=== PATIENT | male | born 1940 | race Caucasian/White ===

== ENCOUNTER 2018-09-19 08:23 | Outpatient (CLI) | payer MEDICARE, BC ==
[2018-09-19] MEDS ORDERED: Gadobenate Dimeglumine 529 MG/1 ML (20ML VIAL) ONE (11:15)
--- NOTE | 2018-09-19 12:41 | MRI ---
MRI OF THE PELVIS WITH AND WITHOUT IV CONTRAST: INDICATION: History of prostate cancer with biopsy 1.5 months ago. Biopsy results were not provided. TECHNIQUE: Multiplanar, multisequence MR images were obtained of the pelvis with and without contrast utilizing a prostate cancer specific protocol. 18 cc of MultiHance was utilized for the examination. No mervin risons are available. The examination was evaluated utilizing a separate 3D DynaCAD work station for multiparametric evaluation. FINDINGS: Motion artifact and stool and gas within the rectum limits image detail. The prostate measures 4.6 x 4.1 x 4.5 cm giving an estimated total prostatic volume of 38 cc. There are multiple areas of heterogeneous nodular formation seen within the central gland likely rela damion to BPH. No extracapsular spread of disease is grossly evident. No pathologically enlarged lymph nodes are present. A small amount of free fluid is present within the pelvis, which may be related to the patient's prior procedure. There is very subtle wall thickening involving the left lateral and posterior wall of the rectum, angelia e of which may be related to the fecal material and peristalsis; however, a focal mass cannot be enti rely excluded. There is a fat-containing inguinal hernias. There is a small intermediate to low T1 hypointensity se en within the left ilium measuring 7 mm adjacent to the left SI joint. A similar signal intensity le edwar is seen within the right ilium measuring 3 mm. This may reflect red marrow. There is some laye red debris seen within the posterior aspect of the bladder. IMPRESSION: 1. PIRADS category 2 - low (clinically significant cancer is unlikely to be present). There is no d efinite evidence of extraprostatic spread of disease. No definite pathologically enlarged lymph node s are evident. 2. Asymmetric wall thickening involving the left lower and posterior aspect of the wall of the rectu m may be artifactual in nature related to peristalsis; however, a focal rectal lesion cannot be entir madeleine excluded. Would recommend consideration for appropriate colon and rectal screening if not alread y performed. 3. Small amount of fluid in the pelvis may be related to patient's prior biopsy. 4. Small amount of layered debris within the posterior bladder may reflect a small amount of hemorrh age or possibly a cystitis. 5. Bilateral fat-containing hernias. 6. Intermediate and slightly low signal intensity focal lesions within both olivier may reflect areas o f red marrow rests. Metastatic disease is felt to be less likely. Would recommend recommendation co nsideration for correlation with a whole body bone scan for further characterization. CODE T POS: KADEN
== END 2018-09-19 08:24 | disposition home or self-care (01) ==
LOC: TBSIIMAG 08:23
PROVIDERS: ATTEND Radiology Radiation Oncology
DX: C61 Malignant neoplasm of prostate (principal); K62.89 Other specified diseases of anus and rectum; N32.9 Bladder disorder, unspecified; K40.20 Bilateral inguinal hernia, without obstruction or gangrene, not specified as recurrent
CPT/HCPCS: 72197; 82565; A9579

== ENCOUNTER 2022-05-12 09:46 | Inpatient (IN) | payer MEDICARE, BC ==
[2022-05-12] MEDS ORDERED: Ketorolac Tromethamine 30 MG/ML VIAL ONE (10:41)
[2022-05-12] MEDS ORDERED: Morphine 4 MG/ML VIAL ONE ×2 (10:42→12:36)
[2022-05-12 11:18] LABS: #Lymphocytes 1.1 thou/uL (1.20-3.40); #Monocytes 1.4 thou/uL (0.11-0.59); #Neutrophils 8.1 thou/uL (1.40-6.50); %Basophils 0.1 % (0.0-1.0); %Eosinophils 0.4 % (0.0-10.0); %Lymphocytes 10.5 % (21.0-51.0); %Monocytes 12.8 % (0.0-10.0); %Neutrophils 76.3 % (42.0-75.0); Hemoglobin 14.7 g/dL (14.0-18.0); Mean Corpuscular HGB CONC 33.8 g/dL (32.0-36.0); Mean Corpuscular Hemoglobin 32.5 pg (27.0-31.0); Mean Corpuscular Volume 96.1 fL (78.0-98.0); Mean Platelet Volume 7.5 fL (7.4-10.4); Platelet Count 132 thou/uL (130-400); RBC Distribution Width 12.7 % (11.5-14.5); Red Blood Cell (RBC) Count 4.52 mill/uL (4.70-6.10); White Blood Cell (WBC) Count 10.6 thou/uL (4.8-10.8)
[2022-05-12 11:41] LABS: ALT (SGPT) 35 U/L (8-55); AST (SGOT) 28 U/L (5-34); Albumin 4.1 g/dL (3.4-4.8); Alkaline Phosphatase 103 U/L (40-110); Anion Gap 15 mmol/L (10-20); BUN (Urea Nitrogen) 20 mg/dL (8.4-25.7); Bilirubin, Total 1.8 mg/dL (0.2-1.2); Calc. Creatinine Clearance 0 mL/min (70-130); Calcium 9.4 mg/dL (7.8-10.44); Carbon Dioxide 24 mmol/L (23-31); Chloride 104 mmol/L (98-107); Estimated GFR 33; Globulin 2.8 g/dL (2.4-3.5); Glucose 119 mg/dL (83-110); Potassium 4.9 mmol/L (3.5-5.1); Protein, Total 6.9 g/dL (5.8-8.1); Sodium 138 mmol/L (136-145)
[2022-05-12] MEDS ORDERED: Dextrose 50% Abboject 50 ML SYRINGE SLOW IVP PRN (12:44)
[2022-05-12] MEDS ORDERED: Dextrose 5% in Water 1,000 ML IV PRN (12:44)
[2022-05-12] MEDS ORDERED: hydrALAZINE 20 MG/ML VIAL SLOW IVP PRN (12:44)
[2022-05-12] MEDS ORDERED: traMADol HCl 50 MG TAB PO PRN (12:48)
[2022-05-12] MEDS ORDERED: Sodium Chloride 0.9% 1,000 ML IV SCH (13:00)
[2022-05-12] MEDS ORDERED: CEFAZOLIN 2 GM in Sodium Chloride 0.9% 100 ML IVPB SCH (14:00)
[2022-05-12 15:20] VITALS: BMI 29.2
[2022-05-12] MEDS: traMADol HCl 50 MG TAB PO SCH ×2 (15:42→21:05)
[2022-05-12] MEDS: Gabapentin 100 MG CAP PO SCH ×2 (15:43→21:05)
[2022-05-12 15:45] LABS: SARS-CoV-2 NAA Rapid Test Not Detected (NotDetected)
[2022-05-12] MEDS: Acetaminophen 500 MG TAB PO SCH ×2 (17:52→23:37)
[2022-05-12] MEDS: Dronedarone HCl 400 MG TAB PO SCH ×2 (17:53→20:20)
[2022-05-12] MEDS: Calcium Carbonate 500 MG ChewTAB PO PRN (17:53)
[2022-05-12] MEDS: Morphine 4 MG/ML VIAL SLOW IVP PRN (17:55)
[2022-05-12] MEDS: Ondansetron PF 4 MG/2 ML Vial IVP PRN (19:45)
[2022-05-12] MEDS: Famotidine 20 MG TAB PO SCH (19:45)
[2022-05-12 20:37] LABS: Bilirubin Negative (Negative); Blood, Urine Negative (Negative); Clarity Clear (Clear); Glucose, Urine (Dipstick) Normal (Negative); Ketone, Urine Negative (Negative); Leukocyte Negative Leu/uL (Negative); Nitrite Negative (Negative); Protein, Urine (Dipstick) 10 mg/dL (Neg-Trace); Specific Gravity, Urine 1.026 (1.002-1.036); Urobilinogen Normal mg/dL (Less than 2); pH, Urine 6.5 (5.0-9.0)
[2022-05-12] MEDS: Senokot S 8.6-50 MG TAB PO SCH (21:05)
[2022-05-13] MEDS: traMADol HCl 50 MG TAB PO SCH (02:42)
[2022-05-13] MEDS: Acetaminophen 500 MG TAB PO SCH (05:46)
[2022-05-13 06:20] LABS: INR-International Normal Ratio 1.2; Prothrombin Time 15.7 sec (12.0-14.7)
[2022-05-13 06:41] LABS: Anion Gap 14 mmol/L (10-20); BUN (Urea Nitrogen) 24 mg/dL (8.4-25.7); Calc. Creatinine Clearance 41 mL/min (70-130); Calcium 8.7 mg/dL (7.8-10.44); Carbon Dioxide 24 mmol/L (23-31); Chloride 106 mmol/L (98-107); Estimated GFR 36; Glucose 85 mg/dL (83-110); Magnesium 1.9 mg/dL (1.6-2.6); Phosphorus 4.3 mg/dL (2.3-4.7); Potassium 4.9 mmol/L (3.5-5.1); Sodium 139 mmol/L (136-145)
[2022-05-13 06:48] LABS: Eosinophils 3 % (0-10); Hemoglobin 12.7 g/dL (14.0-18.0); Hypochromia SLIGHT = 6-15 cells (100X) (0-5/hpf); Lymphocytes 13 % (21-51); MDiff Complete? YES; Mean Corpuscular HGB CONC 32.9 g/dL (32.0-36.0); Mean Corpuscular Volume 97.2 fL (78.0-98.0); Mean Platelet Volume 7.8 fL (7.4-10.4); Monocytes 12 % (0-10); Neutrophil 71 % (42-75); Platelet Count 118 thou/uL (130-400); Platelet Morphology Comment Appears Decreased; RBC Distribution Width 12.6 % (11.5-14.5); Reactive Lymphocytes 1 % (0-10); Red Blood Cell (RBC) Count 3.98 mill/uL (4.70-6.10); White Blood Cell (WBC) Count 6.4 thou/uL (4.8-10.8)
[2022-05-13] MEDS ORDERED: fentaNYL Citrate/PF 100 MCG/2 ML SYRINGE ONE (07:03)
[2022-05-13] MEDS ORDERED: Sodium Chloride 0.9% 100 ML ONE (07:53)
[2022-05-13] MEDS ORDERED: CEFAZOLIN 2 GM VIAL ONE (07:53)
[2022-05-13] MEDS ORDERED: Dexamethasone 20 MG/5 ML VIAL ONE (08:16)
[2022-05-13] MEDS ORDERED: ePHEDrine 50 MG/ML VIAL ONE (08:16)
[2022-05-13] MEDS ORDERED: Rocuronium Bromide 10 MG/ML (10ML VIAL) ONE (08:16)
[2022-05-13] MEDS ORDERED: PROPOFOL 200 MG/20 ML VIAL ONE (08:16)
[2022-05-13] MEDS ORDERED: Ondansetron PF 4 MG/2 ML Vial ONE (08:16)
[2022-05-13] MEDS ORDERED: Lidocaine 1% MPF 2 ML VIAL ONE (08:16)
[2022-05-13] MEDS ORDERED: Phenylephrine 10 MG/ML VIAL ONE (08:16)
[2022-05-13] MEDS ORDERED: SUGAMMADEX SODIUM 200 MG/2 ML VIAL ONE (09:08)
[2022-05-13] MEDS ORDERED: Fentanyl 100 MCG/2 ML VIAL ONE (09:50)
[2022-05-13] MEDS: Morphine 4 MG/ML VIAL SLOW IVP PRN (11:13)
[2022-05-13] MEDS: Sodium Chloride 0.9% 1,000 ML IV SCH ×2 (11:13→20:53)
[2022-05-13] MEDS: Gabapentin 100 MG CAP PO SCH ×3 (11:17→21:19)
[2022-05-13] MEDS: Tamsulosin HCl 0.4 MG CAP PO SCH (11:17)
[2022-05-13] MEDS: Senokot S 8.6-50 MG TAB PO SCH ×2 (11:17→21:20)
[2022-05-13] MEDS: Polyethylene Glycol 3350 17 GM Packet PO SCH (11:20)
[2022-05-13] MEDS: Dronedarone HCl 400 MG TAB PO SCH ×3 (11:20→21:00)
[2022-05-13] MEDS ORDERED: Cyclobenzaprine 10 MG TAB PO PRN (11:33)
[2022-05-13] MEDS: Acetaminophen 325 MG TAB PO SCH ×2 (13:15→18:42)
[2022-05-13] MEDS: Acetaminophen/Codeine 30-300mg Tablet PO SCH ×2 (13:15→19:29)
[2022-05-13] MEDS: Ondansetron PF 4 MG/2 ML Vial IVP PRN (17:02)
[2022-05-13] MEDS: Famotidine 20 MG TAB PO SCH (20:54)
[2022-05-13] MEDS: Fish Oil 1,000 MG CAP PO SCH (20:54)
[2022-05-13] MEDS: Amlodipine 5 MG TAB PO SCH (20:56)
[2022-05-13] MEDS ORDERED: Tamsulosin HCl 0.4 MG CAP PO SCH (21:00)
[2022-05-13] MEDS: Calcium Carbonate 500 MG ChewTAB PO PRN (21:53)
[2022-05-14] MEDS: Acetaminophen 325 MG TAB PO SCH ×5 (00:45→22:53)
[2022-05-14] MEDS: Acetaminophen/Codeine 30-300mg Tablet PO SCH ×5 (00:46→22:53)
[2022-05-14 06:02] LABS: #Lymphocytes 1.3 thou/uL (1.20-3.40); #Monocytes 1.4 thou/uL (0.11-0.59); #Neutrophils 9.7 thou/uL (1.40-6.50); %Basophils 0.1 % (0.0-1.0); %Eosinophils 0.1 % (0.0-10.0); %Lymphocytes 10.5 % (21.0-51.0); %Monocytes 11.5 % (0.0-10.0); %Neutrophils 77.8 % (42.0-75.0); Mean Corpuscular HGB CONC 33.4 g/dL (32.0-36.0); Mean Corpuscular Hemoglobin 32.2 pg (27.0-31.0); Mean Corpuscular Volume 96.3 fL (78.0-98.0); Mean Platelet Volume 7.7 fL (7.4-10.4); Platelet Count 125 thou/uL (130-400); RBC Distribution Width 12.4 % (11.5-14.5); Red Blood Cell (RBC) Count 4.05 mill/uL (4.70-6.10); White Blood Cell (WBC) Count 12.4 thou/uL (4.8-10.8)
[2022-05-14] MEDS: Sodium Chloride 0.9% 1,000 ML IV SCH (06:26)
[2022-05-14 06:36] LABS: Anion Gap 15 mmol/L (10-20); BUN (Urea Nitrogen) 19 mg/dL (8.4-25.7); Calc. Creatinine Clearance 53 mL/min (70-130); Calcium 8.8 mg/dL (7.8-10.44); Carbon Dioxide 22 mmol/L (23-31); Chloride 104 mmol/L (98-107); Estimated GFR 49; Glucose 116 mg/dL (83-110); Magnesium 1.9 mg/dL (1.6-2.6); Phosphorus 3.1 mg/dL (2.3-4.7); Potassium 4.7 mmol/L (3.5-5.1); Sodium 136 mmol/L (136-145)
[2022-05-14] MEDS: Senokot S 8.6-50 MG TAB PO SCH ×2 (07:58→19:28)
[2022-05-14] MEDS: Tamsulosin HCl 0.4 MG CAP PO SCH (07:59)
[2022-05-14] MEDS: Atorvastatin Calcium 10 MG TAB PO SCH (07:59)
[2022-05-14] MEDS: Dronedarone HCl 400 MG TAB PO SCH ×2 (07:59→17:22)
[2022-05-14] MEDS: Montelukast Sodium 10 mg Tablet PO SCH (07:59)
[2022-05-14] MEDS: Lisinopril 10 MG TAB PO SCH (07:59)
[2022-05-14] MEDS: Gabapentin 100 MG CAP PO SCH ×3 (07:59→19:27)
[2022-05-14] MEDS: Fish Oil 1,000 MG CAP PO SCH ×2 (08:00→19:27)
[2022-05-14] MEDS: Polyethylene Glycol 3350 17 GM Packet PO SCH (08:01)
[2022-05-14] MEDS: Apixaban 2.5 MG TAB PO SCH (19:25)
[2022-05-14] MEDS: Amlodipine 5 MG TAB PO SCH (19:25)
[2022-05-14] MEDS: Famotidine 20 MG TAB PO SCH (19:26)
[2022-05-15] MEDS: Acetaminophen/Codeine 30-300mg Tablet PO SCH ×4 (05:35→23:35)
[2022-05-15] MEDS: Acetaminophen 325 MG TAB PO SCH ×4 (05:35→23:35)
[2022-05-15 06:14] LABS: #Eosinphils 0.2 thou/uL (0.0-0.7); #Lymphocytes 2.5 thou/uL (1.20-3.40); #Monocytes 1.1 thou/uL (0.11-0.59); #Neutrophils 5.8 thou/uL (1.40-6.50); %Basophils 0.2 % (0.0-1.0); %Eosinophils 2.4 % (0.0-10.0); %Lymphocytes 25.6 % (21.0-51.0); %Monocytes 11.4 % (0.0-10.0); %Neutrophils 60.3 % (42.0-75.0); Hemoglobin 12.2 g/dL (14.0-18.0); Mean Corpuscular HGB CONC 33.2 g/dL (32.0-36.0); Mean Corpuscular Hemoglobin 32.2 pg (27.0-31.0); Mean Corpuscular Volume 97.1 fL (78.0-98.0); Mean Platelet Volume 7.8 fL (7.4-10.4); Platelet Count 122 thou/uL (130-400); RBC Distribution Width 12.7 % (11.5-14.5); Red Blood Cell (RBC) Count 3.77 mill/uL (4.70-6.10); White Blood Cell (WBC) Count 9.6 thou/uL (4.8-10.8)
[2022-05-15 06:41] LABS: Anion Gap 15 mmol/L (10-20); BUN (Urea Nitrogen) 21 mg/dL (8.4-25.7); Calc. Creatinine Clearance 46 mL/min (70-130); Calcium 8.6 mg/dL (7.8-10.44); Carbon Dioxide 24 mmol/L (23-31); Chloride 105 mmol/L (98-107); Estimated GFR 42; Glucose 80 mg/dL (83-110); Magnesium 1.9 mg/dL (1.6-2.6); Phosphorus 3.3 mg/dL (2.3-4.7); Potassium 4.3 mmol/L (3.5-5.1); Sodium 140 mmol/L (136-145)
[2022-05-15] MEDS: Lisinopril 10 MG TAB PO SCH (08:21)
[2022-05-15] MEDS: Fish Oil 1,000 MG CAP PO SCH ×2 (08:21→20:05)
[2022-05-15] MEDS: Tamsulosin HCl 0.4 MG CAP PO SCH (08:22)
[2022-05-15] MEDS: Gabapentin 100 MG CAP PO SCH ×3 (08:22→20:04)
[2022-05-15] MEDS: Montelukast Sodium 10 mg Tablet PO SCH (08:22)
[2022-05-15] MEDS: Atorvastatin Calcium 10 MG TAB PO SCH (08:22)
[2022-05-15] MEDS: Senokot S 8.6-50 MG TAB PO SCH ×2 (08:22→20:03)
[2022-05-15] MEDS: Dronedarone HCl 400 MG TAB PO SCH ×2 (08:22→17:28)
[2022-05-15] MEDS: Polyethylene Glycol 3350 17 GM Packet PO SCH (08:23)
[2022-05-15] MEDS: Apixaban 2.5 MG TAB PO SCH ×2 (08:23→20:03)
[2022-05-15] MEDS: Fluticasone Propionate Nasal Spray 16 gm Bottle NASAL SCH (09:57)
[2022-05-15] MEDS: Ketotifen Fumarate 0.025% Ophth Soln 5 ml Bottle EA EYE SCH ×2 (09:58→20:01)
[2022-05-15] MEDS: Amlodipine 5 MG TAB PO SCH (20:02)
[2022-05-15] MEDS: Famotidine 20 MG TAB PO SCH (20:03)
[2022-05-16] MEDS: Acetaminophen 325 MG TAB PO SCH ×2 (05:36→11:26)
[2022-05-16] MEDS: Acetaminophen/Codeine 30-300mg Tablet PO SCH ×2 (05:36→11:27)
[2022-05-16 05:59] LABS: #Eosinphils 0.4 thou/uL (0.0-0.7); #Lymphocytes 1.6 thou/uL (1.20-3.40); #Neutrophils 4.4 thou/uL (1.40-6.50); %Eosinophils 5.2 % (0.0-10.0); %Lymphocytes 21.7 % (21.0-51.0); %Neutrophils 59.1 % (42.0-75.0); Hemoglobin 11.3 g/dL (14.0-18.0); Mean Corpuscular HGB CONC 33.9 g/dL (32.0-36.0); Mean Corpuscular Hemoglobin 32.8 pg (27.0-31.0); Mean Corpuscular Volume 96.7 fL (78.0-98.0); Mean Platelet Volume 7.6 fL (7.4-10.4); Platelet Count 119 thou/uL (130-400); RBC Distribution Width 12.5 % (11.5-14.5); Red Blood Cell (RBC) Count 3.45 mill/uL (4.70-6.10); White Blood Cell (WBC) Count 7.5 thou/uL (4.8-10.8)
[2022-05-16 06:11] LABS: Anion Gap 13 mmol/L (10-20); BUN (Urea Nitrogen) 24 mg/dL (8.4-25.7); Calc. Creatinine Clearance 46 mL/min (70-130); Calcium 8.5 mg/dL (7.8-10.44); Carbon Dioxide 24 mmol/L (23-31); Chloride 105 mmol/L (98-107); Estimated GFR 42; Glucose 81 mg/dL (83-110); Magnesium 1.8 mg/dL (1.6-2.6); Phosphorus 3.5 mg/dL (2.3-4.7); Sodium 138 mmol/L (136-145)
[2022-05-16] MEDS: Fish Oil 1,000 MG CAP PO SCH (07:57)
[2022-05-16] MEDS: Dronedarone HCl 400 MG TAB PO SCH (07:58)
[2022-05-16] MEDS: Tamsulosin HCl 0.4 MG CAP PO SCH (07:58)
[2022-05-16] MEDS: Montelukast Sodium 10 mg Tablet PO SCH (07:58)
[2022-05-16] MEDS: Lisinopril 10 MG TAB PO SCH (07:58)
[2022-05-16] MEDS: Senokot S 8.6-50 MG TAB PO SCH (07:59)
[2022-05-16] MEDS: Atorvastatin Calcium 10 MG TAB PO SCH (07:59)
[2022-05-16] MEDS: Apixaban 2.5 MG TAB PO SCH (07:59)
[2022-05-16] MEDS: Fluticasone Propionate Nasal Spray 16 gm Bottle NASAL SCH (08:00)
[2022-05-16] MEDS: Ketotifen Fumarate 0.025% Ophth Soln 5 ml Bottle EA EYE SCH (08:00)
[2022-05-16] MEDS: Gabapentin 100 MG CAP PO SCH ×2 (08:00→15:42)
[2022-05-16] MEDS ORDERED: Cyclobenzaprine 10 MG TAB PO PRN (08:53)
[2022-05-16] MEDS: Polyethylene Glycol 3350 17 GM Packet PO SCH (09:23)
[2022-05-16 16:24] VITALS: BP 124/61; TEMP 97.9
== END 2022-05-16 17:00 | disposition home health service (06) | DRG 481 ==
LOC: ERS 09:46 → SURG B 12:48
PROVIDERS: ADMIT Nurse Practitioner Acute Care; ATTEND Orthopaedic Surgery
PROC: 0QS604Z Reposition Right Upper Femur with Internal Fixation Device, Open Approach (ICD-10-PCS; principal; 2022-05-13)
DX: S72.041A Displaced fracture of base of neck of right femur, initial encounter for closed fracture (principal); N17.9 Acute kidney failure, unspecified; W19.XXXA Unspecified fall, initial encounter; Z20.822 Contact with and (suspected) exposure to COVID-19; I48.91 Unspecified atrial fibrillation; E78.5 Hyperlipidemia, unspecified; I48.0 Paroxysmal atrial fibrillation; I73.9 Peripheral vascular disease, unspecified; M19.90 Unspecified osteoarthritis, unspecified site; M81.0 Age-related osteoporosis without current pathological fracture; I12.9 Hypertensive chronic kidney disease with stage 1 through stage 4 chronic kidney disease, or unspecified chronic kidney disease; N18.9 Chronic kidney disease, unspecified; R33.9 Retention of urine, unspecified; Z88.2 Allergy status to sulfonamides; Z79.899 Other long term (current) drug therapy; Z79.01 Long term (current) use of anticoagulants
CPT/HCPCS: 36415; 70450; 71045; 76000; 80048; 80053; 81003; 83735; 84100; 85025; 85610; 85730; 93005; 96374; 96375; 96376; C1713; G0390; J0690; J1100; J1885; J2270; J2370; J2405; J2704; J3010; J3490; J7050; U0002